=== PATIENT | male | born 1960 | race Caucasian/White ===

== ENCOUNTER 2017-11-24 07:24 | Day surgery (SDC) | payer OTHER ==
[~2017-11-24 07:24] MED LIST: D5 LR 1000 ML 1,000 ML IV ONE
[2017-11-24] MEDS ORDERED: XYLOCAINE 2 % (PLAIN) ONE (08:15)
[2017-11-24] MEDS ORDERED: DIPRIVAN VIAL 20 ML ONE (08:15)
[2017-11-24 09:08] VITALS: BP 109/67
== END 2017-11-24 09:15 | disposition home or self-care (01) ==
LOC: SURG1 07:24
PROVIDERS: ATTEND Internal Medicine Gastroenterology
PROC: 0DJD8ZZ Inspection of Lower Intestinal Tract, Via Natural or Artificial Opening Endoscopic (ICD-10-PCS; principal; 2017-11-24 07:30)
PROC: 0DBP8ZX Excision of Rectum, Via Natural or Artificial Opening Endoscopic, Diagnostic (ICD-10-PCS; principal; 2017-11-24 07:30)
PROC: 0DBE8ZX Excision of Large Intestine, Via Natural or Artificial Opening Endoscopic, Diagnostic (ICD-10-PCS; principal; 2017-11-24 07:30)
DX: R19.4 Change in bowel habit (principal); K63.5 Polyp of colon; K64.0 First degree hemorrhoids; Z86.010 Personal history of colon polyps; Z98.890 Other specified postprocedural states
CPT/HCPCS: A4217; J2001; J3490; J7120